=== PATIENT | female | born 1960 | race Caucasian/White ===

== ENCOUNTER 2016-12-12 22:18 | Inpatient (IN) | payer OTHER ==
[~2016-12-12] VITALS: Ht 165.1 cm; Wt 77.6 kg
[2016-12-12] MEDS ORDERED: ONDANSETRON INJ 2 MG/ML 2 ML VIAL IV STA (22:31)
[2016-12-12] MEDS ORDERED: SODIUM CHLORIDE 0.9% 250ML 250 ML IV STA (22:31)
[2016-12-12] MEDS ORDERED: NICOTINE 21 MG/24 HR TDSY TD STA (22:31)
[2016-12-12] MEDS ORDERED: SODIUM CHLORIDE 0.9% 1000ML 1,000 ML IV STA (22:31)
[2016-12-12] MEDS ORDERED: HYDROmorphone INJ 2 MG/ML SYR/VIAL IV STA (22:31)
[2016-12-12] MEDS ORDERED: ALBUT/IPRATROP 3MG/0.5MG NEB 3 ML VIAL INH STA (22:58)
[2016-12-12] MEDS ORDERED: DEXAMETHASONE SOD INJ 10 MG/ML VIAL IV ONE (23:00)
--- NOTE | 2016-12-12 23:00 | DIAGNOSTIC IMAGING REPORT ---
CHEST ONE VIEW PORTABLE CLINICAL HISTORY: Cough. History of brain cancer. COMPARISON STUDY: No previous studies for comparison. FINDINGS: A cervical spine fusion is incidentally noted. There are numerous old bilateral rib fractures. Cardiac size is normal. There is bilateral hilar enlargement. There is no pneumothorax. There is hazy left basilar opacity and possible small left pleural effusion. A 2.1 cm nodular density projecting over the right upper lung is noted. A 1.4 cm nodular density within the right lower lung is noted. IMPRESSION: 1. Bilateral hilar enlargement. This could be due to lymphadenopathy or enlarged pulmonary arteries. 2. Hazy left basilar opacity with a possible small left pleural effusion. 3. A few nodular densities which project over the right lung. This could reflect pulmonary nodules or airspace disease. Radiographic follow up is recommended. Electronically signed by: Harley Emmanuel M.D. 12/12/2016 10:58 PM Dictated Date/Time: 12/12/2016 10:55 PM
[2016-12-12] MEDS ORDERED: HYDROmorphone INJ 0.5 MG/0.5 ML SYR ONE (23:15)
[2016-12-12] MEDS ORDERED: FNTTP75 TD (23:15)
[2016-12-12] MEDS ORDERED: OPTIRAY 320 IV PRN (23:15)
[2016-12-12] MEDS ORDERED: DXM/4 PO (23:15)
[2016-12-12] MEDS ORDERED: AMT50 PO (23:15)
[2016-12-12] MEDS ORDERED: DULO60CA44 PO (23:15)
[2016-12-12] MEDS ORDERED: GABA-112 PO (23:15)
[2016-12-12] MEDS ORDERED: CALC200S6 INH (23:15)
[2016-12-12] MEDS ORDERED: FLUT115A INH (23:15)
[2016-12-12 23:16] LABS: ISTAT CREATININE 0.5 mg/dl (0.6-1.3); ISTAT HEMOGLOBIN 8.2 g/dl (12.0-16.0); ISTAT IONIZED CALCIUM 0.99 mmol/l (1.12-1.32)
[2016-12-12] MEDS ORDERED: OMEP40CA41 PO (23:16)
[2016-12-12] MEDS ORDERED: OXYC20TA50 PO ×2 (23:16)
[2016-12-12] MEDS ORDERED: LORA-741 PO (23:16)
[2016-12-12] MEDS ORDERED: TRAZ100T29 PO (23:16)
[2016-12-12] MEDS ORDERED: SENN-65 PO (23:16)
[2016-12-12] MEDS ORDERED: LEVE250T PO (23:16)
[2016-12-12] MEDS ORDERED: OXGN (23:16)
[2016-12-12 23:27] LABS: BUN/CREATININE RATIO 26.1 (10-20); CALCIUM 7.9 mg/dl (8.5-10.1); CREATININE 0.64 mg/dl (0.60-1.20); MAGNESIUM 2.2 mg/dl (1.8-2.4); POTASSIUM 5.1 mmol/L (3.5-5.1)
[2016-12-12 23:28] LABS: INR 1.2 (0.9-1.1); PARTIAL THROMBOPLASTIN RATIO 0.9; PROTHROMBIN TIME (PATIENT) 13.4 SECONDS (9.0-12.0)
[2016-12-12 23:32] LABS: HEMATOCRIT 24.2 % (37-47); MEAN CELL VOLUME 98.8 fL (80-100); MEAN CORPUSCULAR HEMOGLOBIN 32.2 pg (25-34); MEAN CORPUSCULAR HGB CONC 32.6 g/dl (32-36); PLATELET COUNT 20 K/uL (130-400); RED BLOOD COUNT 2.45 M/uL (4.2-5.4); WHITE BLOOD COUNT 17.19 K/uL (4.8-10.8)
[2016-12-12] MEDS ORDERED: QUET1TAB30 PO (23:32)
[2016-12-12 23:33] LABS: ANISOCYTOSIS PRESENT; BASO % 1.2 %; COMPLETE YES; IG% 6.9 %; LYMPH % 4.7 %; LYMPH ABS # 0.81 K/uL (1.2-3.4); MONO % 6.5 %; NEUT % 80.7 %; PHOSPHORUS 2.5 mg/dl (2.5-4.9); PLT ESTIMATE SIGNIFIC DECREASED; POLYCHROMASIA 1+; SCHISTOCYTES 1+; THYROID STIMULATING HORMONE 1.31 uIu/ml (0.300-4.500); TOXIC GRANULATION 1+; VACUOLIZATION 1+
--- NOTE | 2016-12-12 23:41 | EMERGENCY ROOM VISIT NOTE ---
ED Visit Note First contact with patient: 22:27 I have seen and examined this patient with Ansley Lion and generally agree with the treatment plan as discussed. Current/Historical Medications Scheduled Amitriptyline Hcl (Elavil), 50 MG PO QAM Calcitonin ([place]) (Calcitonin [place]), 1 SPRAY INH QAM Dexamethasone (Decadron), 4 MG PO TID Duloxetine Hcl (Cymbalta), 60 MG PO QAM Fentanyl (Fentanyl), 1 PATCH TD Q72H Fluticasone-Salmeterol 115/21 Mcg (Advair Hfa 115/21 Mcg), 2 PUFF INH BID Gabapentin (Neurontin), 300 MG PO QID Levetiracetam (Keppra), 250 MG PO BID Lorazepam (Ativan), 0.5 MG PO Q8H Omeprazole (Prilosec), 40 MG PO DAILY Oxycodone Hcl (Oxycontin), 10 MG PO Q4H Oxycodone Hcl (Oxycontin), 20 MG PO Q8H Oxygen (Oxygen), 2 LITERS NA PRN Quetiapine Fumarate (Seroquel), 25 MG PO HS Senna/Docusate Sod (Senokot S), 2 TAB PO Q2D Trazodone Hcl (Trazodone), 200 MG PO HS Allergies Coded Allergies: Bupropion (Unverified Allergy, Severe, HEADACH, 12/12/16) Morphine (Unverified Allergy, Severe, MAKES HER FEEL LOOPY, 12/12/16) Penicillins (Unverified Allergy, Severe, TONGUE SWELLS, 12/12/16) Vital Signs Date Time Temp Pulse Resp B/P Pulse Ox O2 Delivery O2 Flow Rate FiO2 12/12/16 23:34 108 12/12/16 23:02 36.7 75 18 127/86 99 Room Air 12/12/16 22:45 36.7 75 18 127/86 99 Room Air 12/12/16 22:45 99 Room Air 12/12/16 22:45 99 Room Air 12/12/16 22:20 36.7 75 18 127/86 99 Room Air Laboratory Results 12/12/16 22:45 Red Blood Count 2.45, Mean Corpuscular Volume 98.8, Mean Corpuscular Hemoglobin 32.2, Mean Corpuscular Hemoglobin Concent 32.6, Neutrophils (%) (Auto) 80.7, Lymphocytes (%) (Auto) 4.7, Monocytes (%) (Auto) 6.5, Eosinophils (%) (Auto) 0.0 , Basophils (%) (Auto) 1.2, Neutrophils # (Auto) 13.89, Lymphocytes # (Auto) 0.81, Monocytes # (Auto) 1.11, Eosinophils # (Auto) 0.00, Basophils # (Auto) 0.20 12/12/16 22:45 Test 12/12/16 22:45 12/12/16 22:57 12/12/16 23:02 White Blood Count 17.19 K/uL (4.8-10.8) Red Blood Count 2.45 M/uL (4.2-5.4) Hemoglobin 7.9 g/dL (12.0-16.0) Hematocrit 24.2 % (37-47) Mean Corpuscular Volume 98.8 fL (80-100) Mean Corpuscular Hemoglobin 32.2 pg (25-34) Mean Corpuscular Hemoglobin Concent 32.6 g/dl (32-36) Platelet Count 20 K/uL (130-400) Neutrophils (%) (Auto) 80.7 % Lymphocytes (%) (Auto) 4.7 % Monocytes (%) (Auto) 6.5 % Eosinophils (%) (Auto) 0.0 % Basophils (%) (Auto) 1.2 % Neutrophils # (Auto) 13.89 K/uL (1.4-6.5) Lymphocytes # (Auto) 0.81 K/uL (1.2-3.4) Monocytes # (Auto) 1.11 K/uL (0.11-0.59) Eosinophils # (Auto) 0.00 K/uL (0-0.5) Basophils # (Auto) 0.20 K/uL (0-0.2) RDW Standard Deviation 90.5 fL (36.4-46.3) RDW Coefficient of Variation 26.8 % (11.5-14.5) Immature Granulocyte % (Auto) 6.9 % Immature Granulocyte # (Auto) 1.18 K/uL (0.00-0.02) Nucleated RBC Absolute Count (auto) 5.30 K/uL (0-0) Nucleated Red Blood Cells % 30.8 % Toxic Granulation 1+ Toxic Vacuolation 1+ Platelet Estimate SIGNIFIC DECREASED Polychromasia 1+ Anisocytosis PRESENT Schistocytes 1+ Prothrombin Time 13.4 SECONDS (9.0-12.0) Prothromb Time International Ratio 1.2 (0.9-1.1) Activated Partial Thromboplast Time 22.7 SECONDS (21.0-31.0) Partial Thromboplastin Ratio 0.9 Est Creatinine Clear Calc Drug Dose 102.9 ml/min Estimated GFR () 116.4 Estimated GFR (Non- 100.5 BUN/Creatinine Ratio 26.1 (10-20) Calcium Level 7.9 mg/dl (8.5-10.1) Phosphorus Level 2.5 mg/dl (2.5-4.9) Magnesium Level 2.2 mg/dl (1.8-2.4) Total Bilirubin 1.5 mg/dl (0.2-1) Direct Bilirubin mg/dl (0-0.2) Aspartate Amino Transf (AST/SGOT) 127 U/L (15-37) Alanine Aminotransferase (ALT/SGPT) 38 U/L (12-78) Alkaline Phosphatase 756 U/L (45-117) Total Protein 5.8 gm/dl (6.4-8.2) Albumin 2.6 gm/dl (3.4-5.0) Thyroid Stimulating Hormone (TSH) 1.310 uIu/ml (0.300-4.500) Chemistry Specimen Hemolysis Bedside Lactic Acid Venous 4.08 mmol/L (0.90-1.70) Bedside Hemoglobin 8.2 g/dl (12.0-16.0) Bedside Hematocrit 24 % (37-47) Bedside Sodium 127 mEq/L (135-144) Bedside Potassium 6.0 mEq/L (3.3-5.0) Bedside Chloride 93 mEq/L (101-112) Bedside Total CO2 26 mEq/l (24-31) Anion Gap 15.0 mmol/L (16-25) Bedside Blood Urea Nitrogen 22 mg/dl (7-18) Bedside Creatinine 0.5 mg/dl (0.6-1.3) Bedside Glucose (other) 157 mg/dl (70-99) Bedside Ionized Calcium (Di) 0.99 mmol/l (1.12-1.32) Medications Administered Medications (Trade) Dose Ordered Sig/Issa Route Start Time Stop Time Status Last Admin Dose Admin Nicotine 1 patch 1 patch NOW STAT TD 12/12/16 22:31 12/12/16 22:40 DC 12/12/16 23:19 1 PATCH Sodium Chloride 250 ml @ 999 mls/hr Q16M STAT IV 12/12/16 22:31 12/12/16 22:46 DC 12/12/16 23:18 999 MLS/HR Sodium Chloride (Nss 1000ml) 1,000 ml @ 125 mls/hr Q8H STAT IV 12/12/16 22:31 12/13/16 06:30 12/12/16 23:17 125 MLS/HR Ondansetron HCl (Zofran Inj) 4 mg NOW STAT IV 12/12/16 22:31 12/12/16 22:40 DC 12/12/16 23:22 4 MG Dexamethasone Sodium Phosphate (Decadron Inj) 10 mg NOW ONCE IV 12/12/16 23:00 12/12/16 23:01 DC 12/12/16 23:22 10 MG Albuterol/ Ipratropium (Duoneb) 3 ml NOW STAT INH 12/12/16 22:58 12/12/16 22:59 DC 12/12/16 23:21 3 ML Departure Information Referrals Marija Alston M.D. (PCP) Patient Instructions My [facility]
[2016-12-13] VITALS (17 sets, daily range): BP systolic 126–159; BP diastolic 77–118; PULSE 89–123; TEMP 36.4–36.9; O2SAT 92–98; Ht 165.1 cm; Wt 77.6 kg
[2016-12-13 00:28] LABS: URINE APPEARANCE CLEAR (CLEAR); URINE BILIRUBIN NEG (NEG); URINE COLOR YELLOW; URINE NITRITE NEG (NEG); URINE SPECIFIC GRAVITY 1.017 (1.000-1.030); UROBILINOGEN NEG (NEG); ZZUR CULT IF INDIC CLEAN CATCH NO
[2016-12-13] MEDS ORDERED: HYDROmorphone INJ 0.5 MG/0.5 ML SYR ONE (00:32)
[2016-12-13 00:33] LABS: MANUAL MICROSCOPIC REQUIRED? NO; REVIEW REQ? NO
[2016-12-13] MEDS ORDERED: ACLI1AER3 INH (02:01)
[2016-12-13] MEDS ORDERED: ALBUAER INH (02:06)
[2016-12-13] MEDS ORDERED: ADVIN50/60 INH (02:06)
[2016-12-13] MEDS ORDERED: NTRGSL/4 UT (02:06)
[2016-12-13] MEDS ORDERED: IPRASOL4 INH (02:06)
--- NOTE | 2016-12-13 02:10 | EMERGENCY ROOM VISIT NOTE ---
History First contact with patient: 22:27 Chief Complaint: SEIZURE Stated Complaint: TOES BLACK,FEET SWOLLEN,SEIZURES,CANCER RELATED Nursing Triage Summary: see triage note History of Present Illness The patient is a 56 year old female who presents to the Emergency Room with complaints of inability to walk, increasing seizures, chronic pain, abdominal discomfort that is getting progressively worse this past few weeks. Patient has metastatic carcinoma that was recently diagnosed and is stage IV. She started radiation last week. She receives radiation Wednesday through Wednesday for 2 weeks. This was her first week of radiation. She is not receiving chemotherapy. Family states she's been admitted several times at [facility] and are displeased with her care. She recently received blood transfusion and her platelets dropped while she was there from heparin. Family states she had 2 seizures today. These have been increasing in severity. She is currently on Keppra. She has metastatic carcinoma to the brain, liver, lung and bone. They' re unsure the origin of the cancer but think it might be the pancreas. Patient denies chest pain, fever, chills, productive cough, urinary symptoms, vomiting, diarrhea. Patient also states her toes have been black for the past 4 days. They are unsure why. She continues to smoke. She complains of severe pain to the toes and they are cool to touch. Review of Systems See HPI for pertinent positives & negatives. A total of 10 systems reviewed and were otherwise negative. Past Medical/Surgical History Medical Problems: (1) Seizure Metastatic carcinoma, stage IV, COPD, hysterectomy, carpal tunnel release, neck surgery Social History Smoking Status: Current Every Day Smoker Alcohol Use: none Drug Use: none Housing Status: lives with family Current/Historical Medications Scheduled Aclidinium [place] (Tudorza Pressair), 1 PUFFS INH BID Albuterol Sulfate (Proventil Hfa), 2 PUFF INH Q4 Amitriptyline Hcl (Elavil), 50 MG PO QAM Calcitonin ([place]) (Calcitonin [place]), 1 SPRAY INH QAM Dexamethasone (Decadron), 4 MG PO TID Duloxetine Hcl (Cymbalta), 60 MG PO QAM Fentanyl (Fentanyl), 1 PATCH TD Q72H Fluticasone Prop/Salmeterol (Advair Diskus 500/50 60 Dose), 1 PUFF INH BID Fluticasone-Salmeterol 115/21 Mcg (Advair Hfa 115/21 Mcg), 2 PUFF INH BID Gabapentin (Neurontin), 300 MG PO QID Levetiracetam (Keppra), 250 MG PO BID Lorazepam (Ativan), 0.5 MG PO Q8H Omeprazole (Prilosec), 40 MG PO DAILY Oxycodone Hcl (Oxycontin), 10 MG PO Q4H Oxycodone Hcl (Oxycontin), 20 MG PO Q8H Oxygen (Oxygen), 2 LITERS NA PRN Senna/Docusate Sod (Senokot S), 2 TAB PO Q2D Trazodone Hcl (Trazodone), 200 MG PO HS Scheduled PRN Ipratropium-Albuterol (Duoneb), INH Q4H PRN for SOB/Wheezing Miscellaneous Medications Nitroglycerin (Nitrostat), 0.4 MG UT Allergies Coded Allergies: Bupropion (Unverified Allergy, Severe, HEADACH, 12/12/16) Morphine (Unverified Allergy, Severe, MAKES HER FEEL LOOPY, 12/12/16) Penicillins (Unverified Allergy, Severe, TONGUE SWELLS, 12/12/16) Physical Exam Vital Signs Date Time Temp Pulse Resp B/P Pulse Ox O2 Delivery O2 Flow Rate FiO2 12/13/16 00:33 118 24 129/83 91 Room Air 12/12/16 23:48 108 24 119/91 99 Nebulizer 12/12/16 23:34 108 12/12/16 23:02 36.7 75 18 127/86 99 Room Air 12/12/16 22:45 36.7 75 18 127/86 99 Room Air 12/12/16 22:45 99 Room Air 12/12/16 22:45 99 Room Air 12/12/16 22:20 36.7 75 18 127/86 99 Room Air Physical Exam VITALS: Vitals are noted on the nurse's note and reviewed by myself. Vital signs stable. GENERAL: Chronically ill-appearing female with audible wheeze SKIN: The skin was without rashes, erythema There is no tenting of the skin. Capillary reflex less than 2 seconds. HEAD: Normocephalic atraumatic. EARS: External auditory canals clear, tympanic membranes pearly chisholm without erythema or effusion bilaterally. EYES: Pupils equal round and reactive to light and accommodation. Conjunctivae without injection, sclerae without icterus. Extraocular movements intact. NOSE: Patent, turbinates without inflammation or discharge. No sinus tenderness. MOUTH: Mucous membranes mildly dry. Pharynx without erythema or exudate. Uvula midline. Airway patent. Tongue does not deviate. NECK: Supple without nuchal rigidity. No lymphadenopathy. No thyromegaly. Cervical spine is nontender. No JVD. HEART: Regular rate and rhythm LUNGS: Diffuse inspiratory and end expiratory wheezes, bibasilar rales. . No retractions or accessory muscle use. ABDOMEN: Positive bowel sounds x 4. Normal tympanic percussion. Soft, diffuse is tender to palpation, no CVA tenderness, without masses or organomegaly. Aguirre sign negative. No guarding or rebound tenderness. MUSCULOSKELETAL: No muscle atrophy noted. Bilateral feet with toes that are black and cool to touch with decreased sensation. Pedal pulses +2 equal present bilaterally. NEURO: Patient was alert and oriented to person place and time. Normal sensation to light and sharp touch. No focal neurological deficits. Medical Decision & Procedures Laboratory Results 12/12/16 22:45 Red Blood Count 2.45, Mean Corpuscular Volume 98.8, Mean Corpuscular Hemoglobin 32.2, Mean Corpuscular Hemoglobin Concent 32.6, Neutrophils (%) (Auto) 80.7, Lymphocytes (%) (Auto) 4.7, Monocytes (%) (Auto) 6.5, Eosinophils (%) (Auto) 0.0 , Basophils (%) (Auto) 1.2, Neutrophils # (Auto) 13.89, Lymphocytes # (Auto) 0.81, Monocytes # (Auto) 1.11, Eosinophils # (Auto) 0.00, Basophils # (Auto) 0.20 12/12/16 22:45 Test 12/12/16 22:45 12/12/16 22:57 12/12/16 23:02 12/13/16 00:20 White Blood Count 17.19 K/uL (4.8-10.8) Red Blood Count 2.45 M/uL (4.2-5.4) Hemoglobin 7.9 g/dL (12.0-16.0) Hematocrit 24.2 % (37-47) Mean Corpuscular Volume 98.8 fL (80-100) Mean Corpuscular Hemoglobin 32.2 pg (25-34) Mean Corpuscular Hemoglobin Concent 32.6 g/dl (32-36) Platelet Count 20 K/uL (130-400) Neutrophils (%) (Auto) 80.7 % Lymphocytes (%) (Auto) 4.7 % Monocytes (%) (Auto) 6.5 % Eosinophils (%) (Auto) 0.0 % Basophils (%) (Auto) 1.2 % Neutrophils # (Auto) 13.89 K/uL (1.4-6.5) Lymphocytes # (Auto) 0.81 K/uL (1.2-3.4) Monocytes # (Auto) 1.11 K/uL (0.11-0.59) Eosinophils # (Auto) 0.00 K/uL (0-0.5) Basophils # (Auto) 0.20 K/uL (0-0.2) RDW Standard Deviation 90.5 fL (36.4-46.3) RDW Coefficient of Variation 26.8 % (11.5-14.5) Immature Granulocyte % (Auto) 6.9 % Immature Granulocyte # (Auto) 1.18 K/uL (0.00-0.02) Nucleated RBC Absolute Count (auto) 5.30 K/uL (0-0) Nucleated Red Blood Cells % 30.8 % Toxic Granulation 1+ Toxic Vacuolation 1+ Platelet Estimate SIGNIFIC DECREASED Polychromasia 1+ Anisocytosis PRESENT Schistocytes 1+ Prothrombin Time 13.4 SECONDS (9.0-12.0) Prothromb Time International Ratio 1.2 (0.9-1.1) Activated Partial Thromboplast Time 22.7 SECONDS (21.0-31.0) Partial Thromboplastin Ratio 0.9 Est Creatinine Clear Calc Drug Dose 102.9 ml/min Estimated GFR () 116.4 Estimated GFR (Non- 100.5 BUN/Creatinine Ratio 26.1 (10-20) Calcium Level 7.9 mg/dl (8.5-10.1) Phosphorus Level 2.5 mg/dl (2.5-4.9) Magnesium Level 2.2 mg/dl (1.8-2.4) Total Bilirubin 1.5 mg/dl (0.2-1) Direct Bilirubin mg/dl (0-0.2) Aspartate Amino Transf (AST/SGOT) 127 U/L (15-37) Alanine Aminotransferase (ALT/SGPT) 38 U/L (12-78) Alkaline Phosphatase 756 U/L (45-117) Total Protein 5.8 gm/dl (6.4-8.2) Albumin 2.6 gm/dl (3.4-5.0) Thyroid Stimulating Hormone (TSH) 1.310 uIu/ml (0.300-4.500) Chemistry Specimen Hemolysis Bedside Lactic Acid Venous 4.08 mmol/L (0.90-1.70) Bedside Hemoglobin 8.2 g/dl (12.0-16.0) Bedside Hematocrit 24 % (37-47) Bedside Sodium 127 mEq/L (135-144) Bedside Potassium 6.0 mEq/L (3.3-5.0) Bedside Chloride 93 mEq/L (101-112) Bedside Total CO2 26 mEq/l (24-31) Anion Gap 15.0 mmol/L (16-25) Bedside Blood Urea Nitrogen 22 mg/dl (7-18) Bedside Creatinine 0.5 mg/dl (0.6-1.3) Bedside Glucose (other) 157 mg/dl (70-99) Bedside Ionized Calcium (Di) 0.99 mmol/l (1.12-1.32) Urine Color YELLOW Urine Appearance CLEAR (CLEAR) Urine pH 6.0 (4.5-7.5) Urine Specific [place] 1.017 (1.000-1.030) Urine Protein NEG (NEG) Urine Glucose (UA) NEG (NEG) Urine Ketones NEG (NEG) Urine Occult Blood NEG (NEG) Urine Nitrite NEG (NEG) Urine Bilirubin NEG (NEG) Urine Urobilinogen NEG (NEG) Urine Leukocyte Esterase NEG (NEG) Medications Administered Medications (Trade) Dose Ordered Sig/Issa Route Start Time Stop Time Status Last Admin Dose Admin Nicotine 1 patch 1 patch NOW STAT TD 12/12/16 22:31 12/12/16 22:40 DC 12/12/16 23:19 1 PATCH Sodium Chloride 250 ml @ 999 mls/hr Q16M STAT IV 12/12/16 22:31 12/12/16 22:46 DC 12/12/16 23:18 999 MLS/HR Sodium Chloride (Nss 1000ml) 1,000 ml @ 125 mls/hr Q8H STAT IV 12/12/16 22:31 12/13/16 06:30 12/12/16 23:17 125 MLS/HR Hydromorphone HCl (Dilaudid Inj) 0.5 mg ONE STAT IV 12/12/16 22:31 12/12/16 22:40 DC 12/13/16 00:29 0.5 MG Ondansetron HCl (Zofran Inj) 4 mg NOW STAT IV 12/12/16 22:31 12/12/16 22:40 DC 12/12/16 23:22 4 MG Dexamethasone Sodium Phosphate (Decadron Inj) 10 mg NOW ONCE IV 12/12/16 23:00 12/12/16 23:01 DC 12/12/16 23:22 10 MG Albuterol/ Ipratropium (Duoneb) 3 ml NOW STAT INH 12/12/16 22:58 12/12/16 22:59 DC 12/12/16 23:21 3 ML ED Course Prior records/ancillary studies reviewed and summarized above. Nursing notes reviewed. Additional history obtained from family The patient's history was concerning for inability to walk, seizures, progression of carcinoma Differential diagnosis: Etiologies such as progression of carcinoma, metabolic, infection, hypo/ hyperglycemia, electrolyte abnormalities, cardiac sources, intracerebral event, toxicologic, neurologic, as well as others were entertained. Physical examination: As above. ER treatment provided: IV Lock Dilaudid, Decadron, Zofran, nebulizer On reassessment the patient felt better. Diagnostics interpretation by me: ECG: Normal sinus, normal intervals, no acute ST-T wave changes, rate of 117. Impression sinus tachycardia interpreted by myself The labs revealed leukocytosis, anemia, thrombocytopenia, hyponatremia Imaging studies: CT HEAD: No midline shift or hydrocephalus. Slightly hyperdense masses left anterior cerebellar lobe, left mesial frontoparietal lobe, and left thalamus measuring 10, 7, and 3 mm respectively with surrounding vasogenic edema ; hemorrhagic metastases of consideration. Additional scattered areas of low-attenuation are seen within the frontal lobes and mesial left temporal lobe concerning for possible nonhemorrhagic metastases. Nonspecific decreased attenuation of the corpus medullaris cerebelli noted. Consider correlation with contrasted MRI if clinically indicated. CT ABDOMEN & PELVIS: Multifocal pulmonary nodules along with small left pleural effusion and overlying possible passive atelectasis. Nonrecent deformities of the rib cage noted. Scattered low-density lesions are seen within the spine raising question of metastases along with acute appearing compression fracture superior L5 endplate. Subtle left sacral insufficiency fracture also questioned. Multifocal hepatic and possible splenic metastases along with periportal/celiac axis adenopathy and bilateral adrenal masses. Pericholecystic fluid noted without gallbladder distention or radiopaque stone. Cortical cyst suspected in the left kidney. No hydronephrosis. Nonobstructive bowel gas pattern. Normal appearing appendix. Colonic diverticulosis. Small free pelvic fluid; no free air. Small uncomplicated fat-containing umbilical hernia. Radiologist: Angel Hand M.D. CHEST ONE VIEW PORTABLE CLINICAL HISTORY: Cough. History of brain cancer. COMPARISON STUDY: No previous studies for comparison. FINDINGS: A cervical spine fusion is incidentally noted. There are numerous old bilateral rib fractures. Cardiac size is normal. There is bilateral hilar enlargement. There is no pneumothorax. There is hazy left basilar opacity and possible small left pleural effusion. A 2.1 cm nodular density projecting over the right upper lung is noted. A 1.4 cm nodular density within the right lower lung is noted. IMPRESSION: 1. Bilateral hilar enlargement. This could be due to lymphadenopathy or enlarged pulmonary arteries. 2. Hazy left basilar opacity with a possible small left pleural effusion. 3. A few nodular densities which project over the right lung. This could reflect pulmonary nodules or airspace disease. Radiographic follow up is recommended. Electronically signed by: Harley Emmanuel M.D. I did obtain records from [facility]. Patient had a blood transition while she was there. She is given heparin and her platelets to drop. She had metastases to the brain and liver long and bone. She does have an oncologist despite with the patient's daughter is saying. She had an ultrasound of the legs that showed no arterial emboli the other day. Consultation: A consultation was placed with the hospitalist, Dr Murray. The case was discussed and diagnostics were reviewed. The patient was evaluated in the ER for further treatment. Exam and history seem consistent with progression of her carcinoma. Patient is unable to ambulate. She is having increasing pain. She'll be evaluated by medicine for possible admission. By the evaluation outlined above emergent etiologies such as infection, electrolyte abnormalities, cardiac sources, intracerebral event, toxologic, abnormalities blood glucose, as well as others were deemed relatively unlikely. The pt informed about the findings as listed above. All questions were answered and pleased with the treatment. Case reviewed with my attending Medical Decision As above Impression Primary Impression: Anemia Additional Impressions: Pain of metastatic malignancy Ambulatory dysfunction Thrombocytopenia Departure Information Dispostion Being Evaluated By Hospitalist Condition FAIR Referrals Marija Alston M.D. (PCP) Patient Instructions My [facility] Problem Qualifiers Primary Impression: Anemia Anemia type: unspecified type Qualified Codes: D64.9 - Anemia, unspecified
[2016-12-13] MEDS ORDERED: LORAZEPAM 2 MG/ML 1 ML VIAL IV STA (02:43)
--- NOTE | 2016-12-13 02:45 | History and Physical ---
History & Physical Date & Time of Service: Dec 13, 2016 at 01:22 Chief Complaint: Toes Black,Feet Swollen,Seizures,Cancer Related Primary Care Physician: Marija Alston M.D. 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 Primary origin possible from the pancreas (pancreatic carcinoma) as per family. Pt was recently discharged from [facility] for Seizure like activity. she was brought to the ER after she had 2 episodes of seizures today. as per pt has been having recurrent seizure that last a few seconds to minutes associated with some jerking movement. Family does not want to go back to [facility] because they were not happy with the care. She is on Keppra for the seizure and denies any missing dosage. Pt has been feeling very weak with difficulty to ambulate today. Also her toes from both feet are dark and tender. Family said that they noticed that last week and they are not getting worst since then. Her hem/onc physician is Dr. Marija Alston. Her next radiation therapy is scheduled for Wednesday. said that she has 2 more radiation left to complete the radiation. She continues to smoke daily. Social History Smoking Status: Current Every Day Smoker Drug Use: none Allergies Coded Allergies: Bupropion (Unverified Allergy, Severe, HEADACH, 12/12/16) Penicillins (Unverified Allergy, Severe, TONGUE SWELLS, 12/12/16) Morphine (Verified Adverse Reaction, Unknown, MAKES HER FEEL LOOPY, ) Home Medications Scheduled Aclidinium Lacey (Tudorza Pressair), 1 PUFFS INH BID Albuterol Sulfate (Proventil Hfa), 2 PUFF INH Q4 Amitriptyline Hcl (Elavil), 50 MG PO QAM Calcitonin (Hampton) (Calcitonin Hampton), 1 SPRAY INH QAM Dexamethasone (Decadron), 4 MG PO TID Duloxetine Hcl (Cymbalta), 60 MG PO QAM Fentanyl (Fentanyl), 1 PATCH TD Q72H Fluticasone Prop/Salmeterol (Advair Diskus 500/50 60 Dose), 1 PUFF INH BID Fluticasone-Salmeterol 115/21 Mcg (Advair Hfa 115/21 Mcg), 2 PUFF INH BID Gabapentin (Neurontin), 300 MG PO QID Levetiracetam (Keppra), 500 MG PO BID Omeprazole (Prilosec), 40 MG PO DAILY Oxycodone Hcl (Oxycontin), 10 MG PO Q4H Oxycodone Hcl (Oxycontin), 20 MG PO Q8H Oxygen (Oxygen), 2 LITERS NA PRN Senna/Docusate Sod (Senokot S), 2 TAB PO Q2D Trazodone Hcl (Trazodone), 200 MG PO HS Scheduled PRN Ipratropium-Albuterol (Duoneb), INH Q4H PRN for SOB/Wheezing Lorazepam (Ativan), 0.5 MG PO Q8H PRN for Anxiety/Agitation Miscellaneous Medications Nitroglycerin (Nitrostat), 0.4 MG UT Review of Systems Constitutional: + fatigue, + weakness, No chills, No fever Eyes: No discharge, No redness ENT: No nasal symptoms, No unusual epistaxis Respiratory: No cough, No sputum, No wheezing Cardiovascular: + edema, No chest pain, No palpitations Abdomen: No nausea, No vomiting Musculoskeletal: + joint pain, No calf pain Genitourinary - Female: No dysuria, No hematuria Neurologic: + balance problems, + weakness Psychiatric: No insomnia, No substance abuse Endocrine: + fatigue Hematologic / Lymphatic: No night sweats Integumentary: + new/changing skin lesions (ecchymoses, black toes), No itch, No rash Physical Exam Vital Signs Date Time Temp Pulse Resp B/P Pulse Ox O2 Delivery O2 Flow Rate FiO2 12/13/16 00:33 118 24 129/83 91 Room Air 12/12/16 23:48 108 24 119/91 99 Nebulizer 12/12/16 23:34 108 12/12/16 23:02 36.7 75 18 127/86 99 Room Air 12/12/16 22:45 36.7 75 18 127/86 99 Room Air 12/12/16 22:45 99 Room Air 12/12/16 22:45 99 Room Air 12/12/16 22:20 36.7 75 18 127/86 99 Room Air General Appearance: WD/WN, + pertinent finding (feeling weaak and sleepy) Head: normocephalic, atraumatic Eyes: normal inspection, PERRL, EOMI ENT: normal ENT inspection, hearing grossly normal Neck: supple, no JVD Respiratory/Chest: no respiratory distress, no accessory muscle use, + wheezing Cardiovascular: regular rate, rhythm, no murmur Abdomen/GI: normal bowel sounds, soft, + tenderness (with palpation) Back: normal inspection, no CVA tenderness Extremities/Musculoskelatal: no calf tenderness, + pertinent finding (Black toes in B/L feet with tenderness, Edema of the both feet) Neurologic/Psych: alert, normal mood/affect, oriented x 3 Skin: warm/dry, no rash, + pertinent finding (toes are black in both feet, bruises in the extremities) Diagnostics Laboratory Results Results Past 24 Hours Test 12/12/16 22:45 12/12/16 22:57 12/12/16 23:02 12/13/16 00:20 Range/Units White Blood Count 17.19 4.8-10.8 K/uL Red Blood Count 2.45 4.2-5.4 M/uL Hemoglobin 7.9 12.0-16.0 g/dL Hematocrit 24.2 37-47 % Mean Corpuscular Volume 98.8 80-100 fL Mean Corpuscular Hemoglobin 32.2 25-34 pg Mean Corpuscular Hemoglobin Concent 32.6 32-36 g/dl Platelet Count 20 130-400 K/uL Neutrophils (%) (Auto) 80.7 % Lymphocytes (%) (Auto) 4.7 % Monocytes (%) (Auto) 6.5 % Eosinophils (%) (Auto) 0.0 % Basophils (%) (Auto) 1.2 % Neutrophils # (Auto) 13.89 1.4-6.5 K/uL Lymphocytes # (Auto) 0.81 1.2-3.4 K/uL Monocytes # (Auto) 1.11 0.11-0.59 K/uL Eosinophils # (Auto) 0.00 0-0.5 K/uL Basophils # (Auto) 0.20 0-0.2 K/uL RDW Standard Deviation 90.5 36.4-46.3 fL RDW Coefficient of Variation 26.8 11.5-14.5 % Immature Granulocyte % (Auto) 6.9 % Immature Granulocyte # (Auto) 1.18 0.00-0.02 K/uL Nucleated RBC Absolute Count (auto) 5.30 0-0 K/uL Nucleated Red Blood Cells % 30.8 % Toxic Granulation 1+ Toxic Vacuolation 1+ Platelet Estimate SIGNIFIC DECREASED Polychromasia 1+ Anisocytosis PRESENT Schistocytes 1+ Prothrombin Time 13.4 9.0-12.0 SECONDS Prothromb Time International Ratio 1.2 0.9-1.1 Activated Partial Thromboplast Time 22.7 21.0-31.0 SECONDS Partial Thromboplastin Ratio 0.9 Sodium Level 134 136-145 mmol/L Potassium Level 5.1 3.5-5.1 mmol/L Chloride Level 96 98-107 mmol/L Carbon Dioxide Level 28 21-32 mmol/L Anion Gap 10.0 15.0 16-25 mmol/L Blood Urea Nitrogen 17 7-18 mg/dl Creatinine 0.64 0.60-1.20 mg/dl Est Creatinine Clear Calc Drug Dose 102.9 ml/min Estimated GFR () 116.4 Estimated GFR (Non- 100.5 BUN/Creatinine Ratio 26.1 10-20 Random Glucose 157 70-99 mg/dl Calcium Level 7.9 8.5-10.1 mg/dl Phosphorus Level 2.5 2.5-4.9 mg/dl Magnesium Level 2.2 1.8-2.4 mg/dl Total Bilirubin 1.5 0.2-1 mg/dl Direct Bilirubin 0-0.2 mg/dl Aspartate Amino Transf (AST/SGOT) 127 15-37 U/L Alanine Aminotransferase (ALT/SGPT) 38 12-78 U/L Alkaline Phosphatase 756 45-117 U/L Total Protein 5.8 6.4-8.2 gm/dl Albumin 2.6 3.4-5.0 gm/dl Thyroid Stimulating Hormone (TSH) 1.310 0.300-4.500 uIu/ml Chemistry Specimen Hemolysis Bedside Lactic Acid Venous 4.08 0.90-1.70 mmol/L Bedside Hemoglobin 8.2 12.0-16.0 g/dl Bedside Hematocrit 24 37-47 % Bedside Sodium 127 135-144 mEq/L Bedside Potassium 6.0 3.3-5.0 mEq/L Bedside Chloride 93 101-112 mEq/L Bedside Total CO2 26 24-31 mEq/l Bedside Blood Urea Nitrogen 22 7-18 mg/dl Bedside Creatinine 0.5 0.6-1.3 mg/dl Bedside Glucose (other) 157 70-99 mg/dl Bedside Ionized Calcium (Di) 0.99 1.12-1.32 mmol/l Urine Color YELLOW Urine Appearance CLEAR CLEAR Urine pH 6.0 4.5-7.5 Urine Specific [place] 1.017 1.000-1.030 Urine Protein NEG NEG Urine Glucose (UA) NEG NEG Urine Ketones NEG NEG Urine Occult Blood NEG NEG Urine Nitrite NEG NEG Urine Bilirubin NEG NEG Urine Urobilinogen NEG NEG Urine Leukocyte Esterase NEG NEG Diagnostic Radiology CHEST ONE VIEW PORTABLE CLINICAL HISTORY: Cough. History of brain cancer. COMPARISON STUDY: No previous studies for comparison. FINDINGS: A cervical spine fusion is incidentally noted. There are numerous old bilateral rib fractures. Cardiac size is normal. There is bilateral hilar enlargement. There is no pneumothorax. There is hazy left basilar opacity and possible small left pleural effusion. A 2.1 cm nodular density projecting over the right upper lung is noted. A 1.4 cm nodular density within the right lower lung is noted. IMPRESSION: 1. Bilateral hilar enlargement. This could be due to lymphadenopathy or enlarged pulmonary arteries. 2. Hazy left basilar opacity with a possible small left pleural effusion. 3. A few nodular densities which project over the right lung. This could reflect pulmonary nodules or airspace disease. Radiographic follow up is recommended. Electronically signed by: Harley Emmanuel M.D. 12/12/2016 10:58 PM Dictated Date/Time: 12/12/2016 10:[address] HEAD: No midline shift or hydrocephalus. Slightly hyperdense masses left anterior cerebellar lobe, left mesial frontoparietal lobe, and left thalamus measuring 10, 7, and 3 mm respectively with surrounding vasogenic edema ; hemorrhagic metastases of consideration. Additional scattered areas of low-attenuation are seen within the frontal lobes and mesial left temporal lobe concerning for possible nonhemorrhagic metastases. Nonspecific decreased attenuation of the corpus medullaris cerebelli noted. Consider correlation with contrasted MRI if clinically indicated. CT ABDOMEN & PELVIS: Multifocal pulmonary nodules along with small left pleural effusion and overlying possible passive atelectasis. Nonrecent deformities of the rib cage noted. Scattered low-density lesions are seen within the spine raising question of metastases along with acute appearing compression fracture superior L5 endplate. Subtle left sacral insufficiency fracture also questioned. Multifocal hepatic and possible splenic metastases along with periportal/celiac axis adenopathy and bilateral adrenal masses. Pericholecystic fluid noted without gallbladder distention or radiopaque stone. Cortical cyst suspected in the left kidney. No hydronephrosis. Nonobstructive bowel gas pattern. Normal appearing appendix. Colonic diverticulosis. Small free pelvic fluid; no free air. Small uncomplicated fat-containing umbilical hernia. Impression Assessment and Plan Seizure like activity Mostly related to mets to the brain MRI of Brain showed multifocal enhancing masses seen involving both the supra and infratentorial brain. Surrounding vasogenic edema and localized mass effect. Will add Ativan PRN for seizure will get an EEG will consult neuro Continue Keppra seizure precaution Metastatic Cancer Started Radiation therapy last Wednesday at the [facility] will consult radiation oncology abd hem/onc continue pain management Poor prognosis Consider Hospice Thrombocytopenia mostly due to HIT (From recent admission at [facility]) platelet on the day of discharge at [facility] was 23 Platelet today 20 No active bleeding continue monitor cbc Ischemic of the toes B/L feet Possible related due to embolic event arterial Doppler showed normal triphasic flow b/l thighs Superficial venous thrombosis left popliteal fossa will consult vascular surgery COPD wheezing on exam Received decadron 10mg in the ER will do solumedrol 40 mg TID continue neb treatment, advair, and turdoza Anemia Hbg 7.9 received multiple blood transfusion in [facility] as per family will monitor h/h and transfuse if h/h drops further Elevated AST/ Alk phos continue monitor CMP Tobacco abuse Continue smoking daily counseling on smoking cessation Nicotine patch Ambulatory dysfunction PT/OT eval fall precaution Elevated WBC possible related to the steroid UA is negative, afebrile CXR showed Hazy left basilar opacity with a possible small left pleural effusion continue monitor Rib pain/Back pain continue fentanyl patch Will hold oxycodone for now due to lethargy DVT px on SCD due to low platelet and low hgb CODE STATUS FULL CODE as per patient and . Level of Care Med/Surg Resuscitation Status FULL RESUSCITATION VTE Prophylaxis Given or contraindicated: SCD's
[2016-12-13] MEDS ORDERED: GADAVIST IV PRN (03:30)
--- NOTE | 2016-12-13 06:53 | DIAGNOSTIC IMAGING REPORT ---
MRI OF THE BRAIN COMBO CLINICAL HISTORY: Seizure. Cancer history. COMPARISON STUDY: CT of the brain dated 12/12/2016. TECHNIQUE: MRI of the brain was performed utilizing various T1 and T2-weighted sequences in the axial, sagittal, and coronal planes. Contrast-enhanced sequences were acquired following the administration of 8 cc of Gadavist. FINDINGS: Brain parenchyma: There are numerous (greater than 20) enhancing intracranial mass lesions, typical in appearance for metastatic disease. The larger lesions demonstrate surrounding cytotoxic edema, edema is greatest in the cerebellum, the right frontal lobe, and the left temporal lobe. The largest lesions are identified in the left cerebellar peduncle on image #8 measuring 1.4 cm, the right cerebellar hemisphere on image #6 measuring 1.3 cm, and the left parietal lobe measuring 1.0 cm. No definite hemorrhage is seen by MRI. There is no midline shift. There is no restricted diffusion typical for acute ischemia. Scattered small lesions do demonstrate focally restricted diffusion. No extra-axial fluid collection is seen. The cerebellar tonsils are normal in configuration. Ventricles, sulci, and cisterns: Normal in configuration. Pituitary and sella: Unremarkable. Intracranial vasculature: Normal flow voids are maintained at the skull base. Orbits: The bony orbits are grossly intact. Orbital contents are normal in appearance noting a left ocular lens implant. Sinuses and mastoids: There are bilateral mastoid effusions. The paranasal sinuses are clear. Calvarium: Unremarkable. Cervical cord: Partially visualized cervical spinal cord is normal in morphology and signal intensity. IMPRESSION: 1. There are numerous (greater than 20) enhancing intracranial mass lesions. These are typical in appearance for metastatic disease. The larger lesions demonstrate surrounding cytotoxic edema. 2. No definite hemorrhage is identified by MRI. The CT findings remain concerning for hemorrhage within a high left frontal lobe lesion. 3. There is no midline shift or restricted diffusion typical appearance for acute ischemia. 4. Mastoid effusions. Electronically signed by: Bc Benjamin M.D. 12/13/2016 6:51 AM Dictated Date/Time: 12/13/2016 6:43 AM
[2016-12-13] MEDS ORDERED: LORAZEPAM 2 MG/ML 1 ML VIAL IV PRN (07:15)
[2016-12-13] MEDS: ALBUT/IPRATROP 3MG/0.5MG NEB 3 ML VIAL INH SCH ×2 (07:17→11:44)
--- NOTE | 2016-12-13 07:21 | DIAGNOSTIC IMAGING REPORT ---
CT SCAN OF THE ABDOMEN AND PELVIS WITH IV CONTRAST CLINICAL HISTORY: Generalized abdominal pain. Unspecified cancer history. COMPARISON STUDY: No priors. TECHNIQUE: Following the IV administration of 119 cc of Optiray 320, CT scan of the abdomen and pelvis is performed from the lung bases to the proximal femora. Images are reviewed in the axial, sagittal, and coronal planes. IV contrast was administered without complication. Automated dose control exposure was utilized. The examination is degraded by streak artifact from the patient's arms which could not be elevated above the abdomen pelvis. The examination is also degraded by motion artifact. FINDINGS: Lung bases: The heart is normal in size and without pericardial effusion. There are coronary artery calcifications. There are trace pleural effusions, left larger than right. Multifocal pulmonary metastatic lesions are identified at the lung bases. The largest is at the right lung base as seen on August 28 and measuring 1.6 cm. No airspace consolidation is identified typical for pneumonia. Liver: The contrast-enhanced liver is enlarged, measuring 23 cm in length. There is no intrahepatic biliary ductal dilatation. The hepatic veins and portal veins are patent. Findings are consistent with diffuse/multifocal hepatic metastatic disease with greater than 30 lesions identified. Cystic foci within the liver may represent treated metastases. Gallbladder: There is nonspecific gallbladder wall thickening and edema. Spleen: The spleen is normal in size. There are wedge-shaped perfusion deficits identified in the spleen, best seen on axial images #31 and #55. The appearance is typical for small splenic infarcts. Pancreas: Moderately atrophic and grossly unremarkable. Adrenal glands: There are large bilateral adrenal masses. The right adrenal mass measures up to 4.2 cm and the left adrenal mass measures up to 4.5 cm. Kidneys: The contrast enhanced kidneys demonstrate mild cortical atrophy and are without hydronephrosis. The kidneys enhance symmetrically. A 1.7 cm low-density lesion lower pole left kidney seen on image #164 is indeterminant. Abdominal vasculature: The abdominal aorta is normal in course and caliber noting moderate atherosclerotic calcification. Bowel: No bowel obstruction is seen. There is moderate colonic diverticulosis without CT evidence of acute diverticulitis. Mild colonic fecal retention is observed. The appendix is well-visualized and normal. Peritoneum: Trace perihepatic ascites is noted. There is also a small volume of pelvic ascites. No intraperitoneal free air is seen. There are numerous peritoneal and retroperitoneal implants. The largest lesions are identified in the right retroperitoneal space on image #231 and measure up to 1.9 cm. [employer] mesenteric implants are seen on images #109, #240, #268, and #359. Lymphadenopathy: There is retroperitoneal lymphadenopathy. The largest retroperitoneal node is in the aortocaval region seen on image #140 and measures 2.0 x 1.5 cm. There is deep portacaval and hilar lymphadenopathy. A bry aggregate seen on image #103 measures approximately 4 x 3 cm in dimension. A lesion along the left iliac chain as seen on image #292 measures 3.3 x 1.7 cm. Pelvic viscera: The bladder is normal as visualized. The uterus is surgically absent. No adnexal lesion is seen. Skeletal structures: The skeletal structures are osteopenic. Findings are consistent with diffuse mixed lytic and blastic osseous metastatic disease. There is a mild and acute appearing compression fracture of L5. No retropulsed fragments are identified. There are healed bilateral rib fractures. There is a chronic right transverse process fracture of L3. Insufficiency fracture is noted in the left sacral ala. IMPRESSION: 1. Streak and motion artifact degraded examination. 2. Findings are consistent with widespread metastatic disease as detailed below. 3. Hepatomegaly with evidence of multifocal osseous metastatic disease. 4. There is multifocal osseous metastatic disease. There is a mild and acute appearing compression fracture of L5. No retropulsion of fragments is seen. 5. There is bulky upper abdominal, retroperitoneal, left iliac chain lymphadenopathy. 6. There is evidence of peritoneal carcinomatosis with a small volume of abdominopelvic ascites. Retroperitoneal implants are also identified. 7. Metastatic lesions are identified at both lung bases. 8. There are large adrenal metastases. 9. There are small splenic infarcts identified. 10. Moderate colonic diverticulosis without CT evidence of acute diverticulitis. 11. Gallbladder wall thickening and edema is nonspecific, and likely related to adjacent hepatic disease. Correlate clinically and with serum bilirubin levels for evidence of acute cholecystitis. 12. Additional findings as above. Electronically signed by: Bc Benjamin M.D. 12/13/2016 7:19 AM Dictated Date/Time: 12/13/2016 7:01 AM
[2016-12-13 07:23] LABS: BUN/CREATININE RATIO 27.7 (10-20); CREATININE 0.54 mg/dl (0.60-1.20); POTASSIUM 4.5 mmol/L (3.5-5.1)
[2016-12-13] MEDS ORDERED: LORAZEPAM INJ 1 MG in SYRINGE 0.5 ML IV PRN (07:30)
[2016-12-13 07:33] LABS: ALB/GLOB RATIO 0.8 (0.9-2)
--- NOTE | 2016-12-13 07:42 | DIAGNOSTIC IMAGING REPORT ---
CT SCAN OF THE BRAIN WITHOUT IV CONTRAST CLINICAL HISTORY: Seizure. Unspecified cancer history. COMPARISON STUDY: No priors. TECHNIQUE: Unenhanced axial CT scan of the brain is performed from the vertex to the skull base. CT DOSE: 1134.16 mGy.cm FINDINGS: Brain parenchyma: There are numerous small foci of cytotoxic edema scattered throughout the brain. These are greatest in the high left frontal lobe, the right frontal lobe, the left temporal lobe, and the cerebellum. The appearance is highly concerning for multifocal intracranial metastatic disease. A hyperdense lesion in the high left frontal lobe seen on image #21 may demonstrate hemorrhage. This lesion measures up to 8 mm. Trace hemorrhage is also suspected lesions identified in the left thalamus and left cerebellar peduncle. There is no midline shift or evidence of acute territorial ischemia by CT criteria. Minimal periventricular microangiopathic disease is noted. No extra-axial fluid collection is seen. Ventricles, sulci, cisterns: Prominent secondary to involutional change. Intracranial vasculature: There is atherosclerotic calcification of the cavernous carotid arteries. Calvarium: Unremarkable. Sinuses and mastoids: The visualized paranasal sinuses are clear. There are bilateral mastoid effusions. Orbits: The bony orbits are grossly intact. There is a left ocular lens implant. IMPRESSION: 1. There are numerous small foci of cytotoxic edema scattered throughout the brain. The appearance is highly concerning for multifocal intracranial metastatic disease. 2. An 8 mm lesion in the high left frontal lobe is hyperdense, possibly representing hemorrhage. Trace hemorrhage is also suspected within lesions in the left thalamus and the left cerebellar peduncle. 3. There is no midline shift or evidence of acute territorial ischemia by CT criteria. 4. Bilateral mastoid effusions. Electronically signed by: Bc Benjamin M.D. 12/13/2016 7:40 AM Dictated Date/Time: 12/13/2016 7:36 AM
[2016-12-13] MEDS: CHECK FENTANYL PATCH PLACEMENT SCH ×3 (08:00→22:34)
[2016-12-13] MEDS ORDERED: METHYLPREDNISOLONE IV 40 MG in SYRINGE 0 ML IV SCH (08:00)
[2016-12-13] MEDS ORDERED: PANTOprazole SOD 40 MG TAB PO SCH (08:00)
--- NOTE | 2016-12-13 08:06 | DIAGNOSTIC IMAGING REPORT ---
ULTRASOUND BILATERAL LOWER EXTREMITY ARTERIAL; ANKLE BRACHIAL INDICES CLINICAL HISTORY: Dermal changes in the feet. "Black toes". Lower extremity edema. COMPARISON STUDY: No priors. TECHNIQUE: Real-time, grayscale, and color Doppler sonography of the arteries of the right and left lower extremities performed from the middle crease to the feet. Ankle brachial indices are calculated. Ankle brachial indices: Right brachial pressure measures 109. Pressures in the right posterior tibial artery measure 123 for an DARION of 0.95 and pressures in the right dorsalis pedis artery measure 111 for an DARION of 0.86. Left brachial pressure measures 129. Pressures in the left posterior tibial artery measure 113.9 for an DARION of 0.88, and pressures in the left dorsalis pedis measures 101 for an DARION of 0.78. Right lower extremity: There is only minimal atherosclerotic plaque identified throughout the arteries of the right lower extremity. The right common femoral artery is patent and demonstrates triphasic arterial waveforms with a maximum velocity measuring 98 cm/s. The right profundus femoris artery is patent with velocities measuring up to 126 cm/s. There are triphasic waveforms seen throughout the right superficial femoral artery. Velocities within the right superficial femoral artery measure up to 115 cm/s. There are triphasic waveforms in the popliteal artery with velocities measuring up to 110 cm/s. There is three-vessel runoff to the foot. Velocities in the calf vessels measure up to 94 cm/s. The dorsalis pedis artery is patent with velocities measuring up to 69 cm/s. Soft tissue edema is noted in the right calf. Left lower extremity: Only minimal atherosclerotic plaque is identified throughout the arteries of the left lower extremity. The left common femoral artery is patent and demonstrates triphasic arterial waveforms. Velocities in the left common femoral artery measure up to 108 cm/s. The profunda femoris artery is patent with velocities measuring up to 105 cm/s. There are triphasic waveforms seen throughout the left superficial femoral artery. Velocities in the left superficial femoral artery measure up to 127 cm/s. There are triphasic waveforms in the left popliteal artery with velocities measuring up to 130 cm/s. There is three-vessel runoff to the left foot. Velocities in the left calf arteries measure up to 91 cm/s. The left dorsalis pedis artery is patent with velocities measuring up to 55 cm/s. Occlusive superficial venous thrombus is identified within veins in the left popliteal fossa. Soft tissue edema is noted in the left calf. IMPRESSION: 1. There is no sonographic evidence of high-grade stenosis or focal vessel cutoff seen throughout the arteries of the right or left lower extremity. 2. Ankle-brachial indices as above. 3. Occlusive superficial venous thrombus is identified within vessels in the left popliteal fossa. Dictated: 12/13/2016 6:56 AM Transcribed: 12/13/2016 8:04 AM [email or web address] Electronically signed by: Bc Benjamin M.D. 12/13/2016 8:53 AM Dictated Date/Time: 12/13/2016 6:56 AM
[2016-12-13 08:17] LABS: HEMATOCRIT 22.7 % (37-47); MEAN CELL VOLUME 100.4 fL (80-100); MEAN CORPUSCULAR HGB CONC 30.8 g/dl (32-36); PLATELET COUNT 18 K/uL (130-400); PLT ESTIMATE SIGNIFIC DECREASED; RED BLOOD COUNT 2.26 M/uL (4.2-5.4); WHITE BLOOD COUNT 13.84 K/uL (4.8-10.8)
[2016-12-13] MEDS ORDERED: DULOXETINE HCL 60 MG CAP PO SCH (09:00)
[2016-12-13] MEDS ORDERED: AMITRIPTYLINE HCL 50 MG TAB PO SCH (09:00)
[2016-12-13] MEDS ORDERED: CALCITONIN SALMON NA 200 IU/AC 3.7 ML BTL SCH (09:00)
[2016-12-13] MEDS ORDERED: LEVETIRACETAM 250 MG TAB PO SCH ×2 (09:00→20:00)
[2016-12-13] MEDS ORDERED: DOCUSATE SODIUM/SENNA 50/8.6MG TAB PO SCH ×2 (09:00→21:00)
[2016-12-13] MEDS: GABAPENTIN 300 MG CAP PO SCH ×4 (09:06→22:14)
[2016-12-13] MEDS: FLUTICASONE/SALMETEROL (ADVAIR) 500/50 INH 14 PUFF INH SCH ×2 (09:07→22:12)
[2016-12-13] MEDS: NICOTINE 21 MG/24 HR TDSY TD SCH (09:09)
[2016-12-13] MEDS ORDERED: NURSING VERBAL MED ORDER ONE (09:30)
[2016-12-13] MEDS ORDERED: HYDROmorphone INJ 1 MG/ML SYR ONE (09:37)
[2016-12-13] MEDS: HYDROmorphone INJ 1 MG/ML SYR IV PRN ×2 (10:31→14:32)
[2016-12-13] MEDS ORDERED: LEVETIRACETAM 250 MG TAB PO STA (11:36)
--- NOTE | 2016-12-13 13:29 | CONSULTATION REPORT ---
DATE OF CONSULTATION: 12/13/2016 HISTORY OF PRESENT ILLNESS: Babita is 57 years old and is known to Dr. Nahum Alston in [place] who is providing her oncologic care over the past several weeks for her newly diagnosed widely metastatic pancreatic carcinoma with mets involving the brain, lung parenchyma, bone, the vertebral column at T8, etc. all outlined on the chart. She also has a history of asthma, anemia, is a chronic user of tobacco and apparently has some issues with alcohol abuse as well. She was diagnosed actually at [facility] after she presented there following incarceration in a local custodial for resisting arrest while intoxicated with rib fractures and these were found to be pathologic in nature, at least some of them were. She also presented with a seizure like event and has probably had several of these described by her as a sudden twisting of her face and then generalized tonic clonic movements of her extremities. Unfortunately, she is also on some narcotic analgesics and has some myoclonic activity of her upper extremities as well which she describes as seizures She was brought here because of recent recurrent seizure like episodes and has been here overnight now without any events recorded. SOCIAL HISTORY: Reveals her to be a chronic smoker. She does have issues with ethanol use episodically. ALLERGIES: SHE HAS ALLERGIES TO BUPROPION, MORPHINE, PENICILLIN, yet is getting some narcotic analgesics for her pain. MEDICATIONS AT HOME: Include Pressair inhaler, albuterol, amitriptyline 50 mg in the morning, calcitonin, dexamethasone 4 mg 3 times a day, Cymbalta 60 mg daily, fentanyl patch, fluticasone, gabapentin 300 mg q.i.d. started because of some painful and gangrenous lower extremity issues involving her toes, Keppra 500 mg twice a day up from 250 mg twice a day several weeks ago but ineffective in treating her recent seizures, omeprazole, oxycodone as needed, home oxygen, senna, trazodone 200 mg at bedtime and as needed medications include DuoNeb. REVIEW OF SYSTEMS: Reveals weight loss, anorexia, fatigue, alopecia related to her cranial radiation. No other issues of head, eyes, ears, nose and throat. She has not had any recent cough, hemoptysis. Does not have any nausea or vomiting despite the presumptive pancreatic source of the cancer. Does have some issues with narcotic-induced constipation and bladder dysfunction and currently has a catheter in. She has a history of depression, anxiety, on multiple medications for that as noted above. Neurologically, she was free of symptoms until several weeks ago when she had the first of her seizures. Her skin had been asymptomatic, but she then developed black necrotic toes, which are symmetrical and painful and for which she was started on the gabapentin. The cause of this is on established, but may well reflect some hypercoagulability due to her underlying pancreatic CA. FAMILY HISTORY: Noncontributory. PHYSICAL EXAMINATION: VITAL SIGNS: On admission, her blood pressure 129/83, pulse was 118, respirations were 24. GENERAL: She was awake, alert, oriented, a little bit of digressive historian. She was described as pretty lethargic. HEENT: There was alopecia, otherwise cranial examination was normal. LUNGS: Clear. HEART: Had a regular rhythm. EXTREMITIES: Edematous and there was necrotic tissue involving all toes without a clear cut easily palpable pulse in the dorsalis pedis or posterior tibial. The latter; however, was impaired by the presence of a lot of edema. NEUROLOGIC: From a neurologic point of view, she is a little flat, a little dulled, not the greatest historian. I had to obtain most of the history from her chart, the discharge summary and her . Eye movements were normal, I did not see any visual field cuts. An impression of slight degree of left upper motor neuron facial paresis and I thought the left arm had a little drift with some pronation, but otherwise arm movements were fine. There was no tremor. No choreiform activity, but there was intermittent myoclonic activity of her extremities with intention. She was areflexic at the knees. I did not test the ankles because of the painful nature of her feet. There was hyporeflexive in both upper extremities which were symmetrical, I did not see any Cesar's signs. Testing for Babinskis was difficulty again because of extreme pain of her feet. I thought the left toe might have been upgoing. Sensory examination reveals hypersensitivity to touch over the toes and otherwise is unremarkable, but limited in scope. Laboratory studies have shown evidence for anemia and thrombocytopenia. Her basic electrolytes and chemical studies are normal including renal function. She has diffuse metastatic deposits which enhance on MRI of her brain as described in the report. No other imaging studies have been done here, although Dr. Gamboa and I discussed the case, and I recommend we do a cortez spinal imaging. She did have a T8 compression fracture and was scheduled apparently to have an outpatient MRI which was never done. At this point, I do not doubt this woman is having seizures. I suspect the primary cause is her metastatic carcinoma. I would suspect that some of these are starting focally perhaps from the lesion involving the right frontal area. She does have subtle left hemiparesis but the description I received from the is really difficult to interpret and the issue is largely academic. Some of her events may represent narcotic related myoclonus as well. She is on 2 anticonvulsants, one in the form of gabapentin, which is not that effective as an anticonvulsant,but is primarily there for pain; and the Keppra at a dose that is relatively low at 500 twice a day. Her renal function is normal, so I simply have suggested to Dr. Gamboa we move this right up to 750 twice a day. An EEG is going to be done, although even if normal, it would not change my treatment and she is going to be seen by hematology/oncology radiation therapy and we will add cortez spinal MR imaging to make sure there is no impending cord compromise. Family is on record as wanting a major effort at treating this particular cancer and the patient herself apparently is on board with this philosophy, so the issue of hospice is probably not going to be something that they are going to accept at least at this point. We will see what oncology and radiation therapy has to say, but from a neurologic point of view, I certainly would support hospice in view of the extensive nature of her metastatic disease. We will check back with her tomorrow. MARY
[2016-12-13] MEDS ORDERED: SODIUM CHLORIDE 0.9% 1000ML 1,000 ML IV SCH (14:38)
[2016-12-13] MEDS ORDERED: NALOXONE HCL 0.4 MG/1 ML VIAL/CARP IV PRN (14:45)
[2016-12-13] MEDS ORDERED: HYDROmorphone HCL 0.5MG/ML 50 ML CASSETTE IV PRN (14:45)
--- NOTE | 2016-12-13 14:45 | Progress Note ---
Internal Med Progress Note Date of Service: Dec 13, 2016. Provider Documentation: SUBJECTIVE: very lethargic , opens eyes to voice at present pain free , received some pain meds earlier no active Sz activity noted present at bedside OBJECTIVE: Vital Signs-as noted below Exam: General-very ill appearing female, lethargic Eyes-sclera icteric HEENT: loss of hair due to radiation Lungs-coarse breath sound Heart-tachycardic Abdomen-soft, Extremities-dark /purplish to black bilateral toes , tender Neuro-lethargic , confused, no active Sz noted Lab data as noted below. 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 Surrounding vasogenic edema and localized mass effect. appreciate input from Neurology Keppra dose increased to 750 mg IV BID added Decadron 4 mg Po Q 8hrs radiation oncology consulted for palliative radiation for whole brain cont seizure precaution EEG very poor prognosis Advanced Pancreatic Ca with Mets recently diagnosed approx 2 weeks back was been followed with Dr Alston at [place] found to have wide spread met to brain , spine, bone , liver, abdominal lymph noded Started whole brain Radiation therapy last Wednesday at the [facility] extremely poor prognosis with limited life expectancy heme once Dr Aleksandr Brink consulted Family does not want to follow up with previous Charli/Onc continue pain management- ordered for IV Dilaudid ADMISSIONS NURSE pain management consulted Poor prognosis palliative care consult placed Thrombocytopenia mostly due to HIT (From recent admission at [facility]) Platelet 18 No active bleeding ISCHEMIC /NECROSIS OF BILATERAL TOES Possible related due to embolic event recent DARION done at [facility] on 11/28/16 -no evidence of significant arterial occlusive disease arterial Doppler showed normal triphasic flow b/l thighs Superficial venous thrombosis left popliteal fossa not a candidate for anticoagulation due to wide spread brain mets will consult vascular surgery Anemia Hb ~7 due to wide spread metastatic disease ordered for 1 unit of PRBC to be transfused very poor prognosis Elevated AST/ Alk phos due to liver mets CODE STATUS : d/w aware of the poor prognosis of the cancer willing for DNR/DNI DVT PROPHYLAXIS very high risk metastatic CA unable to do pharmacological anticoagulation due to metastatic brain CA /low platelet count /anemia scd and teds DISPOSITION very poor prognosis end stage terminal status pt and willing for palliative care wants to return home with Hospice care Vital Signs: Date Time Temp Pulse Resp B/P Pulse Ox O2 Delivery O2 Flow Rate FiO2 12/14/16 08:00 Nasal Cannula 2.0 12/14/16 07:36 37.0 118 8 122/88 91 Nasal Cannula 2.0 12/14/16 04:07 36.7 132 10 120/90 92 Nasal Cannula 2.0 12/14/16 00:38 111 18 133/90 95 Nasal Cannula 2.0 12/14/16 00:15 Nasal Cannula 2.0 12/13/16 22:30 109 20 143/92 92 Nasal Cannula 2.0 12/13/16 19:53 Nasal Cannula 2.0 12/13/16 19:46 36.8 107 18 137/77 95 Nasal Cannula 2.0 12/13/16 19:30 36.4 109 18 157/100 12/13/16 18:30 36.6 108 18 144/102 12/13/16 17:30 36.5 103 18 148/118 Lab Results:
--- NOTE | 2016-12-13 14:47 | Progress Note ---
Progress Note Date of Service Dec 13, 2016. Progress Note ATTENDING NOTE discuss with pt's at bedside aware of the poor prognosis of the patient and limited life expectancy in agreement for Do not resuscitate status as the out come will not be favorable CODE STATUS CHANGED TO DNR/DNI
[2016-12-13] MEDS ORDERED: FUROSEMIDE INJ 20 MG in SYRINGE 0 ML IV SCH (15:00)
[2016-12-13] MEDS ORDERED: ALBUT/IPRATROP 3MG/0.5MG NEB 3 ML VIAL INH PRN (16:00)
[2016-12-13] MEDS: DEXAMETHASONE 4 MG TAB PO SCH ×2 (16:35→22:19)
[2016-12-13] MEDS ORDERED: DOCUSATE SODIUM 100 MG CAP PO SCH (20:00)
[2016-12-13] MEDS ORDERED: TRAZODONE HCL 100 MG TAB PO SCH (21:00)
[2016-12-13] MEDS: LEVETIRACETAM IV 750 MG in DEXTROSE 5% 100ML 100 ML IV SCH (22:15)
[2016-12-14 00:38] VITALS: BP 133/90; PULSE 111; O2SAT 95
[2016-12-14 04:07] VITALS: BP 120/90; PULSE 132; TEMP 36.7; O2SAT 92
[2016-12-14] MEDS: DEXAMETHASONE 4 MG TAB PO SCH (05:55)
[2016-12-14 07:36] VITALS: BP 122/88; PULSE 118; TEMP 37; O2SAT 91
[2016-12-14] MEDS ORDERED: ATROPINE SULFATE 1% OP SOLN 2 ML BTL ONE (08:08)
[2016-12-14] MEDS ORDERED: SCOPOLAMINE 1.5 MG TDSY TD SCH ×2 (08:15→12:30)
--- NOTE | 2016-12-14 08:20 | Progress Note ---
Internal Med Progress Note Date of Service: Dec 14, 2016. Provider Documentation: SUBJECTIVE: pt found to be completely lethargic,gurgling sound , present at bedside , pt been like this since 4-5 am Dilaudid LUMITE INJECTOR checked pt has not been using LUMITE INJECTOR pump since last night getting basal dose only very poor prognosis end stage /terminal status wished to have pt comfort care only family on their way ordered for SL Atropine PRN for secretion , Scopolamine patch ordered D/C IV Dilaudid LUMITE INJECTOR IV Morphine PRN for any sign of distress or pain progressively declining status -possible during this hospital stay OBJECTIVE: Limited exam due to comfort care Vital Signs-as noted below Exam: General-lethargic, unresponsive , with gurgling sound , while breathing through mouth Eyes-pupils pin point Lungs-coarse breathing sound with rales Neuro-obtunded with audible , coarse breathing Lab data as noted below. ASSESSMENT & PLAN: METASTATIC CA : recently diagnoses -approx 2 weeks back PRESENTATION WITH SEIZURE : due to Brain mets appreciate neurology eval Keppra dose increased to 750 mg IV BID PO Decadron ordered now with Altered mental status /lethargy /unresponsiveness very poor prognosis comfort care /hospice appropriate present at bedside wants pt to be comfortable during her final moments ANEMIA : Due to metastatic CA transfused 1 unit of PRBC with Lasix 20mg IV given to prevent vol overload yesterday progressively decline status today On Hospice comfort care -appropriate in this setting DNR /DNI DISPOSITION COMFORT CARE /HOSPICE terminal end stage status Vital Signs: Date Time Temp Pulse Resp B/P Pulse Ox O2 Delivery O2 Flow Rate FiO2 12/14/16 07:36 37.0 118 8 122/88 91 Nasal Cannula 2.0 12/14/16 04:07 36.7 132 10 120/90 92 Nasal Cannula 2.0 12/14/16 00:38 111 18 133/90 95 Nasal Cannula 2.0 12/14/16 00:15 Nasal Cannula 2.0 12/13/16 22:30 109 20 143/92 92 Nasal Cannula 2.0 12/13/16 19:53 Nasal Cannula 2.0 12/13/16 19:46 36.8 107 18 137/77 95 Nasal Cannula 2.0 12/13/16 19:30 36.4 109 18 157/100 12/13/16 18:30 36.6 108 18 144/102 12/13/16 17:30 36.5 103 18 148/118 12/13/16 17:00 36.4 109 18 152/116 12/13/16 16:30 36.5 108 18 156/110 12/13/16 16:00 36.6 116 18 159/110 96 2.0 12/13/16 15:47 36.8 114 18 133/94 12/13/16 15:40 109 18 98 Nasal Cannula 2.0 12/13/16 14:34 36.4 114 20 126/88 93 Nasal Cannula 2.0 12/13/16 11:44 89 18 97 Nasal Cannula 2.0 Lab Results: Results Past 24 Hours Test 12/13/16 11:25 12/13/16 16:43 Range/Units Bedside Glucose 184 195 70-90 mg/dl
[2016-12-14] MEDS: LEVETIRACETAM IV 750 MG in DEXTROSE 5% 100ML 100 ML IV SCH (08:34)
[2016-12-14] MEDS: NICOTINE 21 MG/24 HR TDSY TD SCH (08:35)
[2016-12-14] MEDS: CHECK FENTANYL PATCH PLACEMENT SCH (08:36)
[2016-12-14] MEDS: ATROPINE SULFATE 1% OP SOLN 5 ML BTL SL PRN ×2 (08:49→10:26)
[2016-12-14] MEDS ORDERED: NURSING VERBAL MED ORDER ONE ×2 (10:30→12:15)
[2016-12-14] MEDS ORDERED: MoRPHine SULFATE 2 MG/ML CARP ONE (11:50)
[2016-12-14] MEDS ORDERED: LORAZEPAM INJ 1 MG in SYRINGE 0.5 ML IV PRN ×2 (12:00→13:30)
[2016-12-14] MEDS ORDERED: MoRPHine SULFATE 2 MG/ML CARP IV PRN (12:00)
[2016-12-14] MEDS ORDERED: LORAZEPAM 2 MG/ML 1 ML VIAL IV PRN (12:00)
[2016-12-14] MEDS: HYDROmorphone INJ 1 MG/ML SYR IV PRN ×2 (13:54→15:20)
--- NOTE | 2016-12-14 14:38 | Neurology Progress Notes ---
Neurology Progress Note Date of Service Dec 14, 2016. Sen Jc is a 57 year old female who has a H asthma, HIT, anemia, tobacco abuse. She was recently diagnosed with metastatic carcinoma to the brain, lungs, liver , bone with retro peritoneal nodes. She was having radiation therapy at [facility] for the primay of pancreas. She was discharged from [facility] and was brought to [facility] after 2 seizures. They were recurrent an lasted a few minutes. she was on Keppra an it was recommended her does be increase from 500mg BID to 750 mg BID. Today she had worsening MS an labor of breathing and only woke briefly. Discussion with and medical staff it was decided to place her on comfort care. All medications were stopped accept comfort medications. She currently had labored breathing. Objective Date Time Temp Pulse Resp B/P Pulse Ox O2 Delivery O2 Flow Rate FiO2 12/14/16 08:00 Nasal Cannula 2.0 12/14/16 07:36 37.0 118 8 122/88 91 Nasal Cannula 2.0 12/14/16 04:07 36.7 132 10 120/90 92 Nasal Cannula 2.0 12/14/16 00:38 111 18 133/90 95 Nasal Cannula 2.0 12/14/16 00:15 Nasal Cannula 2.0 12/13/16 22:30 109 20 143/92 92 Nasal Cannula 2.0 12/13/16 19:53 Nasal Cannula 2.0 12/13/16 19:46 36.8 107 18 137/77 95 Nasal Cannula 2.0 12/13/16 19:30 36.4 109 18 157/100 12/13/16 18:30 36.6 108 18 144/102 12/13/16 17:30 36.5 103 18 148/118 12/13/16 17:00 36.4 109 18 152/116 12/13/16 16:30 36.5 108 18 156/110 12/13/16 16:00 36.6 116 18 159/110 96 2.0 12/13/16 15:47 36.8 114 18 133/94 12/13/16 15:40 109 18 98 Nasal Cannula 2.0 12/13/16 14:34 36.4 114 20 126/88 93 Nasal Cannula 2.0 Last 24 Hours Test 12/13/16 16:43 Bedside Glucose 195 mg/dl Imaging: no new imaging Exam: Gen: lethargic only minimal responsiveness to voice and stimulation lungs course breath sound CV RRR toes necrotic and cool to touch opens eye slightly with command follows no other commends Current Inpatient Medications Medications (Trade) Dose Ordered Sig/Issa Route Start Time Stop Time Status Last Admin Dose Admin Ioversol (Optiray 320) 100 ml UD PRN IV 12/12/16 23:15 12/16/16 23:14 Gadobutrol (Gadavist) 8 mmol UD PRN IV 12/13/16 03:30 12/17/16 03:29 Nicotine (Nicoderm Cq 21MG Patch) 1 patch QAM TD 12/13/16 09:00 01/12/17 08:59 12/13/16 09:09 1 PATCH Miscellaneous (Remove Nicoderm Patch) 1 ea HS N/A 12/13/16 21:00 01/12/17 20:59 12/13/16 21:00 1 EA Miscellaneous Information (Order Awaiting Action) 1 ea QS N/A 12/13/16 06:00 01/12/17 05:59 Fentanyl (Duragesic Patch) 75 mcg Q3D@0900 TD 12/15/16 09:00 12/29/16 08:59 Miscellaneous (Fentanyl Patch Remove & Waste) 1 ea Q3D@0859 N/A 12/15/16 08:59 01/14/17 08:58 Miscellaneous Information (Check Fentanyl Patch Placement) 1 ea QS N/A 12/13/16 08:00 01/12/17 07:59 12/14/16 08:36 1 EA Lorazepam (Ativan Inj) 1 mg Q2HWA PRN IV 12/13/16 07:15 01/12/17 07:14 Albuterol/ Ipratropium 3 ml 3 ml QIDR PRN INH 12/13/16 16:00 01/12/17 15:59 12/13/16 15:40 3 ML Lorazepam/Syringe (Ativan Inj/ Syringe) 1 ml @ 1 mls/min UD PRN IV 12/14/16 13:30 01/13/17 13:29 Atropine Sulfate (Atropine Sulfate 1% Oph Soln) 2 drops Q1H PRN SL 12/14/16 08:15 01/13/17 08:14 12/14/16 10:26 2 DROPS Scopolamine (Transderm-Scop Patch) 1.5 mg Q72H TD 12/14/16 08:15 01/13/17 08:14 12/14/16 08:48 1.5 MG Miscellaneous (Remove Transderm-Scop Patch) 1 ea Q72H N/A 12/17/16 08:15 01/16/17 08:14 Miscellaneous Information 1 ea 1 ea QS N/A 12/14/16 16:00 01/13/17 15:59 Lorazepam/Syringe (Ativan Inj/ Syringe) 1 ml @ 1 mls/min Q1H PRN IV 12/14/16 12:00 01/13/17 11:59 Lorazepam (Ativan Inj) 1 mg Q1H PRN IV 12/14/16 12:00 01/13/17 11:59 12/14/16 11:59 1 MG Scopolamine (Transderm-Scop Patch) 1.5 mg Q3D@1230 TD 12/14/16 12:30 01/13/17 12:29 12/14/16 12:25 1.5 MG Miscellaneous (Remove Transderm-Scop Patch) 1 ea Q3D@1229 N/A 12/17/16 12:29 01/16/17 12:28 Hydromorphone HCl (Dilaudid Inj) 1 mg Q1H PRN IV 12/14/16 12:15 12/28/16 12:14 12/14/16 13:54 1 MG Impression 56 year old with terminal pancreatic cancer and mets Plan 1. comfort care per family request very reasonable decision very grim prognosis 2. all non essential medications have been stopped 3. will sign off for now. 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 discussed with Saima Shelton MD
[2016-12-14] MEDS ORDERED: CHECK SCOPOLAMINE PATCH PLACEMENT SCH (16:00)
--- NOTE | 2016-12-14 16:11 | Discharge Summary ---
Discharge Summary Date of Service Dec 14, 2016. 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 Primary origim from the pancreas (pancreatic carcinoma). Pt was recently discharged from [facility] for Seizure. she was brought to the ER after she had 2 episodes of seizures today. as per pt has been having recurrent seizure that last a few seconds to minutes associated with some jerking movement. Family does not want to go back to [facility] because they were not happy with the care. She is on Keppra for the seizure and denies any missing dosage. Pt has been feeling very weak with difficulty to ambulate today. Also her toes from both feet are dark and tender. Family said that they noticed that last week and they are not getting worst since then. Her hem/onc physician is Dr. Marija Alston. Her next radiation therapy is scheduled for Wednesday. said that she has 2 more radiation left to complete the radiation. She continues to smoke daily. Physical Exam (per Admitting): General Appearance: WD/WN, + pertinent finding (feeling weaak and sleepy) Head: normocephalic, atraumatic Eyes: normal inspection, PERRL, EOMI ENT: normal ENT inspection, hearing grossly normal Neck: supple, no JVD Respiratory/Chest: no respiratory distress, no accessory muscle use, + wheezing Cardiovascular: regular rate, rhythm, no murmur Abdomen/GI: normal bowel sounds, soft, + tenderness (with palpation) Back: normal inspection, no CVA tenderness Extremities/Musculoskelatal: no calf tenderness, + pertinent finding (Black toes in B/L feet with tenderness, Edema of the both feet) Neurologic/Psych: alert, normal mood/affect, oriented x 3 Skin: warm/dry, no rash, + pertinent finding (toes are black in both feet, bruises in the extremities) Hospital Course PRONOUNCEMENT : pt at 13 54 pm was on comfort care /hospice for terminal end stage metastatic CA developed agonal breathing -then ceased breathing at 3: 54 pm Family members -, daughter was present pt evaluated at bedside no breathing movement no audible heart sound or lung sound on auscultation Pupils bilat fixed non reactive pt pronounced at bedside cause of -metastatic CA with wide spread mets to brain , bone, liver progressive respiratory failure leading to cardiopulmonary arrest pt while in comfort care Hospice DNR/DNI no autopsy requested by Family members METASTATIC CA : recently diagnoses -approx 2 weeks back PRESENTATION WITH SEIZURE : due to Brain mets appreciate neurology eval Keppra dose increased to 750 mg IV BID PO Decadron ordered now with Altered mental status /lethargy /unresponsiveness very poor prognosis comfort care /hospice appropriate present at bedside wants pt to be comfortable during her final moments ANEMIA : Due to metastatic CA transfused 1 unit of PRBC with Lasix 20mg IV given to prevent vol overload yesterday progressively decline status today On Hospice comfort care -appropriate in this setting DNR /DNI DISPOSITION COMFORT CARE /HOSPICE terminal end stage status PT WHILE ON COMFORT CARE /HOSPICE Discharge Instructions PT
--- NOTE | 2016-12-14 16:31 | Progress Note ---
Progress Note Date of Service Dec 14, 2016. Progress Note ATTENDING NOTE : pt's Daughter ( Genna Garrison phone # [phone] ) and son ( Joseph Waldron ) notified that pt mentioned of donating her body for science after she expires after diagnosed with Ca in last few weeks pt understood that she will not be a candidate for organ donation asked to contact [employer] [facility] -by the family for body donation [facility] notified ( ) family will be contracted by Science Care team pt's body will be transferred to the [facility] at [facility] once initial screening process is done and if accepted -pt's body will be picked up from [facility] by [employer]
[2016-12-15] MEDS ORDERED: FENTANYL PATCH REMOVE & WASTE SCH (08:59)
[2016-12-15] MEDS ORDERED: FENTANYL 75 MCG/HR TDSY TD SCH (09:00)
[2016-12-16] MEDS ORDERED: MAGNESIUM CITRATE 296 ML/BTL PO SCH (08:00)
== END 2016-12-14 17:49 | disposition expired | DRG 54 ==
LOC: ENRESERVTM → ENRESERVDT → C.EDB 22:20 → C.4E 12-13 01:46
PROVIDERS: ADMIT Internal Medicine; ATTEND Hospitalist
DX: C79.31 Secondary malignant neoplasm of brain (principal); J96.90 Respiratory failure, unspecified, unspecified whether with hypoxia or hypercapnia; C78.7 Secondary malignant neoplasm of liver and intrahepatic bile duct; C79.51 Secondary malignant neoplasm of bone; C25.9 Malignant neoplasm of pancreas, unspecified; C78.6 Secondary malignant neoplasm of retroperitoneum and peritoneum; F17.200 Nicotine dependence, unspecified, uncomplicated; Z51.5 Encounter for palliative care; Z66 Do not resuscitate; J44.9 Chronic obstructive pulmonary disease, unspecified; D63.0 Anemia in neoplastic disease; D75.82 Heparin induced thrombocytopenia (HIT); I46.9 Cardiac arrest, cause unspecified